=== PATIENT | male | born 1975 | race African-American/Black ===

== ENCOUNTER 2018-09-27 20:30 | Emergency (ER) | payer OTHER ==
[2018-09-27] MEDS ORDERED: DIPHENHYDRAMINE 25 MG TAB/CAP ONE (21:15)
[2018-09-27] MEDS ORDERED: METHYLPREDNISOLONE 125 MG INJ ONE (21:15)
--- NOTE | 2018-09-27 21:40 | EDPHYS ---
Physician Documentation [facility] Name: Eliseo Sewell Age: 43 yrs Sex: Male : 1975 Arrival Date: 09/27/2018 Time: 20:33 Bed 14 Private MD: ED Physician Jeremy Herrera HPI: 09/27 21:07 This 43 yrs old Black Male presents to ER via Ambulatory with complaints of Eye Problem.jr8 21:07 The patient is experiencing redness, swelling. Onset: The symptoms/episode jr8 began/occurred acutely, today. Duration: the symptoms are continuous. Aggravated by nothing. Alleviated by nothing. Associated signs and symptoms: Pertinent positives: None. Patient does not utilize any form of vision correction. Severity of symptoms: At their worst the symptoms were mild in the emergency department the symptoms are unchanged. The patient has not experienced similar symptoms in the past. The patient has not recently seen a physician. Patient stated that he had finished dinner and were on the way home. Stated that both of his eyes started to itch. Had rubbed them. Soon after both immediately swelled. Mildly better now but still swollen. Stated that he had Cuban food and shrimp for dinner. Has never had this in the past. Denies recent illness or other symptoms . Historical: - Allergies: 20:38 No Known Allergies; aj - Home Meds: 20:38 None [Active]; aj - PMHx: 20:38 None; aj - PSHx: 20:38 None; aj - Immunization history:: Adult Immunizations up to date. - Social history:: Smoking status: Patient/guardian denies using tobacco. - Ebola Screening: : Patient negative for fever greater than or equal to 101.5 degrees Fahrenheit, and additional compatible Ebola Virus Disease symptoms Patient denies exposure to infectious person Patient denies travel to an Ebola-affected area in the 21 days before illness onset No symptoms or risks identified at this time. ROS: 21:07 ENT: Negative for injury, pain, and discharge, Neck: Negative for injury, pain, and jr8 swelling, Cardiovascular: Negative for chest pain, palpitations, and edema, Respiratory: Negative for shortness of breath, cough, wheezing, and pleuritic chest pain, Abdomen/GI: Negative for abdominal pain, nausea, vomiting, diarrhea, and constipation, Back: Negative for injury and pain, MS/Extremity: Negative for injury and deformity, Skin: Negative for injury, rash, and discoloration, Neuro: Negative for headache, weakness, numbness, tingling, and seizure. 21:07 Eyes: Positive for redness, swelling, of the right eye and left eye. Exam: 21:07 Visual Acuity: Visual acuity is within normal limits. jr8 21:07 Head/Face: Normocephalic, atraumatic. ENT: Nares patent. No nasal discharge, no septal abnormalities noted. Tympanic membranes are normal and external auditory canals are clear. Oropharynx with no redness, swelling, or masses, exudates, or evidence of obstruction, uvula midline. Mucous membranes moist. Neck: Trachea midline, no thyromegaly or masses palpated, and no cervical lymphadenopathy. Supple, full range of motion without nuchal rigidity, or vertebral point tenderness. No Meningismus. Cardiovascular: Regular rate and rhythm with a normal S1 and S2. No gallops, murmurs, or rubs. Normal PMI, no JVD. No pulse deficits. Respiratory: Lungs have equal breath sounds bilaterally, clear to auscultation and percussion. No rales, rhonchi or wheezes noted. No increased work of breathing, no retractions or nasal flaring. Abdomen/GI: Soft, non-tender, with normal bowel sounds. No distension or tympany. No guarding or rebound. No evidence of tenderness throughout. Back: No spinal tenderness. No costovertebral tenderness. Full range of motion. Skin: Warm, dry with normal turgor. Normal color with no rashes, no lesions, and no evidence of cellulitis. MS/ Extremity: Pulses equal, no cyanosis. Neurovascular intact. Full, normal range of motion. Neuro: Awake and alert, GCS 15, oriented to person, place, time, and situation. Cranial nerves II-XII grossly intact. Motor strength 5/5 in all extremities. Sensory grossly intact. Cerebellar exam normal. Normal gait. 21:07 Eyes: Periorbital structures: swelling, that is mild, on the right lower eyelid, on the left lower eyelid, Pupils: equal, round, and reactive to light and accomodation, Extraocular movements: intact throughout, Conjunctiva: injected, bilaterally, Corneas: are normal, Sclera: no appreciated abnormality, Anterior chamber: normal, Lids and lashes: appear normal. Vital Signs: 20:38 BP 124 / 75; Pulse 97; Resp 20; Temp 98.6; Pulse Ox 98% on R/A; Weight 117.93 kg; aj Height 5 ft. 8 in. (172.72 cm); 21:55 BP 108 / 70; Pulse 90; Resp 16; Pulse Ox 99% on R/A; rr5 20:38 Body Mass Index 39.53 (117.93 kg, 172.72 cm) aj MDM: 20:57 Patient medically screened. jr8 21:39 Data reviewed: vital signs, nurses notes, and as a result, I will discharge patient. jr8 Data interpreted: Pulse oximetry: on room air is 98 %. Interpretation: normal. Counseling: I had a detailed discussion with the patient and/or guardian regarding: the historical points, exam findings, and any diagnostic results supporting the discharge/admit diagnosis, the need for outpatient follow up, a family practitioner, to return to the emergency department if symptoms worsen or persist or if there are any questions or concerns that arise at home. Administered Medications: 21:28 Drug: Benadryl 50 mg Route: PO; rr5 22:00 Follow up: Response: No adverse reaction rr5 21:28 Drug: SOLU-Medrol 125 mg Route: IM; Site: left gluteus; rr5 22:00 Follow up: Response: No adverse reaction rr5 Disposition: 09/27/18 21:39 Discharged to Home. Impression: Allergic Reaction. - Condition is Stable. - Discharge Instructions: Anaphylactic Reaction, Adult. - Prescriptions for Prednisone 20 mg Oral Tablet - take 1 tablet by ORAL route once daily for 5 days; 5 tablet. - Medication Reconciliation Form, Thank You Letter, Antibiotic Education, Prescription Opioid Use form. - Follow up: Private Physician; When: 2 - 3 days; Reason: Recheck today's complaints, Continuance of care, Re-evaluation by your physician. - Problem is new. - Symptoms have improved. Addendum: 09/29/2018 09:21 Co-signature as Attending Physician, Jeremy Herrera MD I agree with the assessment and c maier plan of care. Signatures: Patricia James RN Jeremy Escoto MD MD cha Roszak, Josh, PA PA jr8 Lior Shannon RN RN rr5 Corrections: (The following items were deleted from the chart) 09/27 22:00 21:39 09/27/2018 21:39 Discharged to Home. Impression: Allergic Reaction. Condition is rr5 Stable. Forms are Medication Reconciliation Form, Thank You Letter, Antibiotic Education, Prescription Opioid Use. Follow up: Private Physician; When: 2 - 3 days; Reason: Recheck today's complaints, Continuance of care, Re-evaluation by your physician. Problem is new. Symptoms have improved. jr8
--- NOTE | 2018-09-27 21:40 | ER ---
Nurse's Notes [facility] Name: Eliseo Sewell Age: 43 yrs Sex: Male : 1975 Arrival Date: 09/27/2018 Time: 20:33 Bed 14 Private MD: Diagnosis: Allergic Reaction Presentation: 09/27 20:37 Presenting complaint: Patient states: Bilateral eye itching and swelling that started aj just [employer]. Transition of care: patient was not received from another setting of care. Onset of symptoms was September 27, 2018. Risk Assessment: Do you want to hurt yourself or someone else? Patient reports no desire to harm self or others. Initial Sepsis Screen: Does the patient meet any 2 criteria? No. Patient's initial sepsis screen is negative. Does the patient have a suspected source of infection? No. Patient's initial sepsis screen is negative. Care prior to arrival: None. 20:37 Method Of Arrival: Ambulatory aj 20:37 Acuity: BASILIO 5 aj Triage Assessment: 20:38 General: Appears in no apparent distress. comfortable, Behavior is calm, cooperative, aj appropriate for age. Pain: Denies pain. EENT: Lid(s) swollen bottom lid bilaterally. Neuro: Level of Consciousness is awake, alert, obeys commands, Oriented to person, place, time, situation, Appropriate for age. Respiratory: Airway is patent Trachea midline Respiratory effort is even, unlabored, Respiratory pattern is regular, symmetrical. Derm: Skin is intact, is healthy with good turgor, Skin is pink, warm \T\ dry. normal. Historical: - Allergies: 20:38 No Known Allergies; aj - Home Meds: 20:38 None [Active]; aj - PMHx: 20:38 None; aj - PSHx: 20:38 None; aj - Immunization history:: Adult Immunizations up to date. - Social history:: Smoking status: Patient/guardian denies using tobacco. - Ebola Screening: : Patient negative for fever greater than or equal to 101.5 degrees Fahrenheit, and additional compatible Ebola Virus Disease symptoms Patient denies exposure to infectious person Patient denies travel to an Ebola-affected area in the 21 days before illness onset No symptoms or risks identified at this time. Screenin:45 Abuse screen: Denies threats or abuse. Denies injuries from another. Nutritional rr5 screening: No deficits noted. Tuberculosis screening: No symptoms or risk factors identified. Fall Risk None identified. Total Paul Fall Scale indicates No Risk (0-24 pts). Assessment: 21:05 General: Appears in no apparent distress. uncomfortable, Behavior is calm, cooperative, rr5 appropriate for age. Pain: Denies pain. Neuro: Level of Consciousness is awake, alert, obeys commands, Oriented to person, place, time, situation, Appropriate for age. Cardiovascular: Capillary refill < 3 seconds Patient's skin is warm and dry. 21:05 Respiratory: Airway is patent Respiratory effort is even, unlabored, Respiratory rr5 pattern is regular, symmetrical, Denies shortness of breath. GI: No signs and/or symptoms were reported involving the gastrointestinal system. : No signs and/or symptoms were reported regarding the genitourinary system. EENT: Eyes swelling both eyes. Derm: Skin is intact, Skin temperature is warm. Musculoskeletal: Circulation, motion, and sensation intact. Capillary refill < 3 seconds. 21:58 Reassessment: Patient appears in no apparent distress at this time. Patient is alert, rr5 oriented x 3, equal unlabored respirations, skin warm/dry/pink. able to open eyes more widely. denies any or SOB. discharge instruction given and explained without complaints made. Patient states symptoms have improved. Vital Signs: 20:38 BP 124 / 75; Pulse 97; Resp 20; Temp 98.6; Pulse Ox 98% on R/A; Weight 117.93 kg; aj Height 5 ft. 8 in. (172.72 cm); 21:55 BP 108 / 70; Pulse 90; Resp 16; Pulse Ox 99% on R/A; rr5 20:38 Body Mass Index 39.53 (117.93 kg, 172.72 cm) aj ED Course: 20:33 Patient arrived in ED. es 20:38 Triage completed. aj 20:38 Arm band placed on right wrist. Patient placed in an exam room. aj 20:40 Patient has correct armband on for positive identification. Bed in low position. Call rr5 light in reach. 20:57 Herve Hair PA is PHCP. jr8 20:57 Jeremy Herrera MD is Attending Physician. jr8 21:06 Lior Shannon RN is Primary Nurse. rr5 22:01 No provider procedures requiring assistance completed. Patient did not have IV access rr5 during this emergency room visit. Administered Medications: 21:28 Drug: Benadryl 50 mg Route: PO; rr5 22:00 Follow up: Response: No adverse reaction rr5 21:28 Drug: SOLU-Medrol 125 mg Route: IM; Site: left gluteus; rr5 22:00 Follow up: Response: No adverse reaction rr5 Outcome: 21:39 Discharge ordered by . margarita 22:00 Patient left the ED. rr5 22:00 Discharged to home ambulatory, with family. rr5 22:00 Condition: stable 22:00 Discharge instructions given to patient, Instructed on discharge instructions, follow up and referral plans. medication usage, Demonstrated understanding of instructions, follow-up care, medications, Prescriptions given X 1. Signatures: Patricia James, RN Oksana Beverly Josh, PA PA jr8 Lior Shannon RN RN rr5
== END 2018-09-27 22:00 | disposition home or self-care (01) ==
LOC: ER 20:30
DX: R22.9 Localized swelling, mass and lump, unspecified (principal); T78.40XA Allergy, unspecified, initial encounter
CPT/HCPCS: 96372; 99283; J2930